=== PATIENT | female | born 1975 | race Caucasian/White ===

== ENCOUNTER 2016-08-14 10:32 | Emergency (ER) | payer SELFPAY ==
[~2016-08-14 10:32] MED LIST: BENADRYL ALLERG25 M1 PO; BENADRYL25 M3 PO; CYPROHEPTADINE H4 M1 PO; HYDROXYZINE HCL50 M1 PO; IBUPROFEN IB200 MG PO; PREDNISONE20 M1 PO; TRAMADOL HCL50 M2 PO; TYLENOL EXTRA500 M1 PO
[2016-08-14 13:46] LABS: BASO % 0.4 % (0-2); EOS % 0.7 % (0-7); HCT-HEMATOCRIT 39.8 % (34.0-49.0); HGB-HEMOGLOBIN 13.8 gm/dl (12.0-15.5); IMMATURE GRANULOCYTES ABSOLUTE 0.01 tho/cmm (0-0.03); IMMATURE GRANULOCYTES PERCENT 0.2 % (0-0.3); LYMPH ABSOLUTE COUNT 1.4 tho/cmm (0.8-4.5); MCH (MEAN CORPUSCULAR HGB) 35.2 pg (28.0-32.0); MCHC MEAN CORPUSCULAR HGB CONC 34.7 % (32.0-36.0); MCV (MEAN CELL VOLUME) 101.5 fl (82.0-96.0); MONO % 8.5 % (0-12); MONOCYTE ABSOLUTE COUNT 0.5 tho/cmm (0.0-1.2); NEUTROPHIL ABSOLUTE COUNT 3.7 tho/cmm (1.6-8.0); NEUTROPHIL-AUTOMATED 3.7 tho/cmm (1.6-8.0); NEUTROPHILS % 65.2 % (40-80); PLATELET COUNT 217 tho/cmm (150-450); RED BLOOD COUNT 3.92 mil/cmm (4.00-5.20); RED CELL DISTRIBUTION WIDTH 12.4 % (12.4-16.4); WHITE BLOOD COUNT 5.7 tho/cmm (4.0-10.0)
[2016-08-14 13:58] LABS: ANION GAP 11 mmol/L (0-20); BLOOD UREA NITROGEN 8 mg/dl (6-24); CALCIUM 9.2 mg/dl (8.5-10.5); CARBON DIOXIDE-VENOUS 26 mmol/L (22-32); CHLORIDE 112 mmol/l (96-110); CREATININE 0.76 mg/dl (0.50-1.10); GLUCOSE 90 mg/dL (70-110); POTASSIUM 4.3 mmol/L (3.7-5.1); SODIUM 145 mmol/L (135-145); eGFR VALUE FOR BLACK >90 mL/Min
== END 2016-08-14 14:39 ==
LOC: EDMED 10:32
PROVIDERS: Emergency Medicine
DX: R42 Dizziness and giddiness (principal); R51 Headache; F17.210 Nicotine dependence, cigarettes, uncomplicated
CPT/HCPCS: J7030